=== PATIENT | male | born 1950 | race Caucasian/White ===

== ENCOUNTER → 2023-08-03 07:38 | Outpatient (REF) | payer MEDICARE, OTHER, SELFPAY | LOC: HWRAD 07:38 | PROVIDERS: ATTENDING PHYSICIAN Family Medicine | DX: R10.33 Periumbilical pain (principal); L29.9 Pruritus, unspecified; Z87.19 Personal history of other diseases of the digestive system | CPT/HCPCS: 76700 ==

== ENCOUNTER 2023-08-03 13:22 | Inpatient (IN) | payer MEDICARE, OTHER, SELFPAY ==
[2023-08-03] VITALS (10 sets, daily range): BP systolic 98–152; BP diastolic 63–124
--- NOTE | 2023-08-03 11:38 | ED.GENMED ---
History of Present Illness
General
Chief Complaint: Abnormal Lab Value
Source: patient, physician and previous radiology exam
Exam Limitations: none
Time Seen by Provider: 08/03/23 11:09
Nursing documentation reviewed up to this point in time: agreed with
Travel History
Have you had any contact with someone who has COVID-19?: No
Do you have any symptoms of coronavirus? Fever > 100 degrees, chills, cough, shortness of breath, sore throat, loss of taste or smell, muscle aches, or headache?: No
History of Present Illness
History of Present Illness:
73-year-old male referred to the ER for evaluation and admission due to elevated bilirubin social drinker about a beer a week, non-smoker month or so ago developed some indigestion after eating sausage did not think too much of it subsequently had
another episode when he was in [facility] with fever and chills, has noticed some yellowing of the skin and itching, had outpatient blood work at [facility] yesterday showed increased bilirubin ultrasound done today at the [facility], referred to
the ER for evaluation MRI MRCP admission consideration for specialty consultation
Past History
Past History
ED Past Medical History: Cancer (Melanoma with resection at [place]); Negative Asthma, HTN, Hypercholesterolemia or NIDDM
ED Past Surgical History: Other (Melanoma with resection at [place]); Negative Appendectomy, Bowel resection, Cardiac or Cholecystectomy
Social History
Tobacco: Non-smoker
Alcohol: Occasional
Drug: None
Personal:
Living: with family
Employment: Retired
Family History
Family History: Other ( with pancreatic CA)
Review of Systems
Review of Systems
All Other Systems: Not applicable
Constitutional: Reports fever, fatigue and chills
EENT: Reports no symptoms
Respiratory: Reports no symptoms
Cardiac: Reports no symptoms
ABD/GI: Reports nausea; Denies abdominal pain, vomiting or diarrhea
: Reports no symptoms
Musculoskeletal: Reports no symptoms
Skin: Reports itching
Neurological: Reports no symptoms
Phy Exam
Physical Exam
Physical Exam:
Physical Exam
General: no apparent distress, not acutely ill
Neck: Slight jaundice
Heart: s1/s2 regular rate and rhythm, no murmur. equal radial pulses.
Lungs: no acute respiratory distress. clear bilaterally
Abdomen: Not tender
Neuro: alert and oriented. no focal neurological deficits
Skin: no rash
Psychiatric: well kept. interactive and cooperative
Extremities: no edema.
Course
Orders/Labs/Results
Orders:
Orders
08/03/23 11:46
Amylase Urgent
Complete Blood Count/With Diff Urgent
Comprehensive Metabolic Panel Urgent
Lipase Urgent
PTT Urgent
Prothrombin Time Urgent
08/03/23 12:00
Blood Culture Q30M
KATELYNN Source: Blood/Venous
Specimen Description:
08/03/23 12:30
Blood Culture Q30M
KATELYNN Source: Blood/Venous
Specimen Description:
Vital Signs
Initial and Last Documented VS:
Initial Vital Signs
Temp Pulse Resp BP Pulse Ox
97.6 F 63 18 98/68 96
08/03/23 09:56 08/03/23 09:56 08/03/23 09:56 08/03/23 09:56 08/03/23 09:56
Last Documented Vital Signs
Temp Pulse Resp BP Pulse Ox
97.6 F 61 17 134/63 99
08/03/23 11:53 08/03/23 11:53 08/03/23 11:53 08/03/23 11:53 08/03/23 11:53
MDM/Problems Addressed
Differential Diagnosis Includes:
Jaundice obstruction malignancy stone infection hepatitis
MDM/Problems Addressed:
Jaundice obstructive numbers
Chronic conditions affecting care:
Melanoma
Acute Exacerbation and/or Progression of Chronic Illness:
Melanoma
*Critical Care Note
Total Time (30-74mins, 75-104mins- exclusive of procedures): Not Applicable
Update Note
Update Note:
Labs from the outpatient setting reviewed from what was sent to me from the PCP, will repeat here blood cultures due to having chills, outpatient ultrasound for the wellness center noted message sent to the hospitalist for admission
ED Attending Note
-
Portions of this chart may have been created with voice recognition software.� Occasional wrong word or��sound alike� substitutions may have occurred due to the inherent limitations of voice recognition software.
Discharge Plan
Departure
Patient Disposition: Admit
Date of Disposition: 08/03/23
Time of Disposition: 11:59
Admit to: Med/Surg
Presentation/result/management discussed w/ accepting MD/DO: Hospitalist
Patient with high blood pressure during this ER visit?: No
Condition: Fair
Covid-19: Not Applicable
Discharge Problem:
Jaundice
Prescriptions:
No Action
sulfacetamide sodium 1 DROP drops
2 drp ophthalmic (eye) Q2H Qty: 1 0RF
Rx Instructions:
While awake
Referrals:
Dante Villalobos MD [Family Provider] -
Interventions
Interventions:
*Risk Screen - Suicide Last Done: 08/03/23 11:56
*General Assessment Last Done: 08/03/23 11:54
ED- Fall Risk Assessment Last Done: 08/03/23 11:57
*ED COVID-19 Vaccine History Last Done: 08/03/23 09:56
[2023-08-03 11:57] LABS: % Basophils 0.4 % (0-2); % Eosinophils 1.3 % (0-6); % Immature Granulocytes 0.2 % (0-0.5); % Lymphocytes 20.7 % (20.5-51.1); % Monocytes 8.6 % (1.7-9.3); % Neutrophils 68.8 % (42.2-75.2); Absolute Eosinophils 0.1 10^3/uL (0-0.7); Absolute Monocytes 0.4 10^3/uL (0.1-0.6); Absolute Neutrophils 3.3 10^3/uL (1.4-6.5); Hematocrit 39.7 % (39.0-52.0); Hemoglobin 13.5 g/dL (13.0-18.0); Mean Corpuscular Volume 91.1 fL (80.0-94.0); Mean Platelet Volume 9.6 fL (7.4-10.4); Nucleated Red Blood Cells % 0 % (-); Platelet Count 154 10^3/uL (130-400); Red Blood Cell Count 4.36 10^6/uL (4.70-6.10); Red Cell Dist. Width 13.2 % (11.5-14.5); White Blood Cell Count 4.8 10^3/uL (4.8-10.8)
[2023-08-03 12:12] LABS: INR 0.96; PT 12.6 Sec (11.4-14.6)
[2023-08-03 12:13] LABS: ALT (SGPT) 175 U/L (0-50); APTT 31.4 Sec (23.4-35.0); AST (SGOT) 61 U/L (17-59); Albumin 4.1 g/dl (3.5-5.0); Alkaline Phosphatase 193 U/L (38-126); Blood Urea Nitrogen 16 mg/dl (9-20); Calcium 9.5 mg/dl (8.4-10.2); Carbon Dioxide 26 mmol/L (22-30); Chloride 99 mmol/L (98-107); Glucose 207 mg/dl (70-99); Potassium 3.9 mmol/L (3.5-5.1); Sodium 135 mmol/L (135-145); Total Bilirubin 3.6 mg/dl (0.2-1.3); Total Protein 7.1 g/dl (6.3-8.2); eGFR > 60.00
[2023-08-03 12:20] LABS: Amylase 56 U/L (30-110); Lipase 87 U/L (23-300)
--- NOTE | 2023-08-03 13:08 | HPS.HSE ---
Addendum entered and electronically signed by Dick Leblanc MD 08/03/23 13:43:
I saw and examined the patient.
The JAMB CUTTER or PA's note was reviewed and I agree with the note.
Comment:
Patient 73 years old with history of diabetes mellitus, metastatic melanoma, BPH, presented to the hospital abdominal pain. Patient has been having intermittent diffuse mild to moderate abdominal discomfort for last several weeks on and off
associated nausea, and also some shaking and started having some pruritus and some yellow skin. His PCP ordered ultrasound and some blood work that came back abnormal with elevated LFTs. His ultrasound shows cholelithiasis but no cholecystitis and
mild hepatic steatosis and mild splenomegaly. He was sent over to the hospital for evaluation. Denies any chest pain or shortness of breath.
Physical exam:
General: Acutely ill. Nontoxic
HEENT: Icterus present. Normocephalic, Atraumatic and Dry Mucous Membranes
Respiratory: Clear to Auscultation; Negative Wheezes, Rales or Rhonchi
Cardiac: Regular Rhythm and S1/S2
GI: Soft, Nontender and Nondistended
Musculoskeletal: No Clubbing, No Cyanosis and No Edema
Neuro: Awake, Alert and Oriented
Psych: Calm
A/P:
Abdominal pain with elevated LFTs--> LFTs with obstructive pattern, plan for MRCP, empiric broad-spectrum antibiotics, n.p.o. IV fluids, follow-up cultures, GI consult. Will give further recommendations based clinical course.
Original Note:
Family Physician
-
Family Physician: Dante Villalobos
Chief Complaint
-
Jaundice
History of Present Illness
Patient is a 73 y/o male with PMH of type II diabetes presented to the ED after being sent by his PCP for elevated bilirubin. Patient says he had an episode of epigastric burning and discomfort after eating at a convention on June 27, 2023, which
resolved the next day. He then had an episode of 'severe shakes' after eating at a food truck while in [facility]. He didn't eat for 3 days but started to feel better and was able to drive home. He says he started to feel unwell again on Sunday
with chills and severe pruritus. He saw his PCP on Sunday who ordered an abdominal US and blood work. He received a call from his PCP this morning telling him to present to the ED due to an elevated bilirubin. Patient currently denies abdominal
pain, nausea, vomiting, fever, chills, sweats, and chest pain or discomfort.
Medical History
Past Medical History
Past Medical History: Reports Other
Additional Past Medical History:
Diabetes Mellitus, Type II
BPH
Metastatic Melanoma (Lymph Node Only)
Past Surgical History: Reports Other
Additional Past Surgical History:
Melanoma Removal with Lymph Node Dissection
Social History
Tobacco: Non-smoker
Alcohol: Occasional (One beer per week)
Family History
Family History: Not pertinent
Allergies / Home Medications
Allergies reflects when Allergies were last updated in [employer].
Home Medications with original date entered in [employer]
Allergy/Medication List:
Allergies
Allergy/AdvReac Type Severity Reaction Status Date / Time
No Known Allergies Allergy Verified 08/03/23 10:01
Home Medications
meclizine 12.5 mg tablet 12.5 mg PO TIDPRN PRN vertigo 08/03/23
metformin 500 mg tablet,extended release 24 hr 500 mg PO DAILY Diabetes 08/03/23
multivit,calcium,min-folic acid 240 mcg-D3 25 mcg-lycop 300 mcg tablet (One A Day Men Complete) 1 tab PO DAILY Supplement 08/03/23
naproxen sodium 220 mg tablet (Aleve) 440 mg PO DAILYPRN PRN mild pain 08/03/23
polyethylene glycol 3350 17 gram oral powder packet (Miralax) 17 g PO DAILY PRN constipation 08/03/23
Review of Systems
-
A 12 point ROS was completed and negative except as noted: Yes
Constitutional: Denies Fever or Chills
Respiratory: Denies Cough or Trouble Breathing
Cardiac: Denies Chest Pain or Palpitations
Abdomen/GI: Reports See HPI
Physical Exam
Vital Signs
Vital Signs
Temp Pulse Resp BP Pulse Ox
97.6 F 62 14 122/93 97
08/03/23 11:53 08/03/23 12:45 08/03/23 12:45 08/03/23 12:00 08/03/23 12:45
Physical Exam
General: No Apparent Distress and Comfortable
HEENT: Moist mucous membranes, Atraumatic and Other (Scleral Icterus)
Respiratory: Clear and Non Labored Respirations
Cardiac: S1/S2 and Regular Rhythm
GI: Soft, Non Tender and Normal Bowel Sounds
Rectal: Deferred by Provider
Musculoskeletal: No Clubbing, No Cyanosis and No Edema
Skin: Warm, Dry and Jaundice (Slightly)
Neuro: Awake, Alert, Oriented and Nonfocal/grossly intact
Psych: Calm
Laboratory Results
-
08/03/23 11:46
08/03/23 11:46
Laboratory Results
PT 12.6 Sec (11.4-14.6) 08/03/23 11:46
INR 0.96 08/03/23 11:46
APTT 31.4 Sec (23.4-35.0) 08/03/23 11:46
Total Bilirubin 3.6 mg/dl (0.2-1.3) H 08/03/23 11:46
AST 61 U/L (17-59) H 08/03/23 11:46
ALT 175 U/L (0-50) H 08/03/23 11:46
Alkaline Phosphatase 193 U/L (38-126) H 08/03/23 11:46
Lipase 87 U/L (23-300) 08/03/23 11:46
Abd US:
1. Cholelithiasis. No secondary findings to suggest acute cholecystitis.
2. Top normal caliber of the common bile duct.
3. Mild hepatic steatosis.
4. Mild splenomegaly.
Data Reviewed
-
Ultrasound: Report Reviewed by me
Lab Data: Labs Reviewed by me
Impression/Plan
-
Jaundice
-Consult GI
-Check MRI/MRCP
-Trend LFTs
Diabetes Mellitus, Type II
-Hold metformin
-Monitor sugars and continue coverage insulin
DVT proph: Lovenox
Code Status: Full Code
--- NOTE | 2023-08-03 14:20 | CON.GI ---
Addendum entered and electronically signed by Jt Napoles MD 08/03/23 14:55:
I saw and examined the patient.
The FERMENTER WINE or PA's note was reviewed and I agree with the note.
Comment: 73yo male presents with episodes of epigastric pain, initially after eating at convention and out at restaurant which he attributed to food poisoning. Last episode occurred with diaphoresis earlier this week lasting couple days. Saw PCP
and had labs and US- gallstones and top normal CBD and sent to ER. TBil 3.6, AST 61, ALT 175. Lipase normal. Currently pain free
REC:
Await MRI/MRCP to r/o CBD stone. If positive---> ERCP (inpt vs outpt could be considered as he is pain free for last couple days after most recent attack)
Should have eventual cholecystectomy regardless of MRI result
Trend LFTs
Original Note:
Consultation
-
Date/Time Consultation Requested: 08/03/23 1315
Date/Time Consultation Performed: 08/03/23 1345
Requesting Provider: KIM Francis
Performing Provider: Dr. Napoles/LJ Guerrero
Reason for Consultation: jaundice
Medical History
Chief Complaint / HPI
Chief Complaint: jaundice
History of Present Illness:
73-year-old male with history of melanoma, BPH, diabetes vertigo and colon polyps presents to the emergency room with elevated LFTs. Asked to evaluate for the same. The patient states that he was in [facility] in the first week in July and he
developed acute onset of chills and rigors. He still had some nausea and he tried to make himself vomit without any success. He had no other symptoms. This happened again a couple days later and they took his temperature and it was 95 degrees.
He states he just could not get warm. His noticed that he looked yellow. He went to his primary care's office where he obtained labs that showed that he was jaundiced and was asked to come to the emergency room. The patient also noticed that
just the other day he had some itching of his skin. The patient has had no recent medications. No travel other than to [facility]. He denies any known fevers, vomiting, melena, hematochezia, dysphagia or odynophagia. No acholic stools, no
bilirubinuria, the patient denies any early satiety or unintentional weight loss. The patient drinks rare alcohol maybe once every week or 2. Patient denies any tattoos, piercings, IV drug use, new medications, sick contacts, raw or spoiled foods,
sore throat, lymphadenopathy, joint pains, rashes or any other notable symptoms.
Past Medical History
Past Medical History: Cancer (Melanoma), NIDDM and Other (BPH, vertigo, colon polyp)
Past Surgical History: Other (Melanoma excision with lymph node dissection)
Social History
Tobacco: Non-Smoker
Alcohol: Other (1 beer every week or 2)
Drug: None
Personal:
Living: With Family
Family History
Family History: Other (No family history of gastrointestinal malignancy, father with 'colitis'.)
Allergies / Home Medications
Allergy/AdvReac Type Severity Reaction Status Date / Time
No Known Allergies Allergy Verified 08/03/23 10:01
Medication Instructions Recorded
meclizine 12.5 mg tablet 12.5 mg PO TIDPRN PRN vertigo 08/03/23
metformin 500 mg tablet,extended 500 mg PO DAILY Diabetes 08/03/23
release 24 hr
multivit,calcium,min-folic acid 1 tab PO DAILY Supplement 08/03/23
240 mcg-D3 25 mcg-lycop 300 mcg
tablet (One A Day Men Complete)
naproxen sodium 220 mg tablet 440 mg PO DAILYPRN PRN mild pain 08/03/23
(Aleve)
polyethylene glycol 3350 17 gram 17 g PO DAILY PRN constipation 08/03/23
oral powder packet (Miralax)
Review of Systems
-
All other systems: A 12 pt ROS was Negative except as stated above in HPI
Vital Signs
Temp Pulse Resp BP Pulse Ox
97.6 F 61 19 143/124 96
08/03/23 11:53 08/03/23 12:54 08/03/23 12:54 08/03/23 13:00 08/03/23 12:54
Physical Exam
Exam
General: No Apparent Distress
HEENT: Other (Sclera mild icterus)
Respiratory: Clear
Cardiac: Regular Rhythm
GI: Soft, Non Tender, Non Distended and Normal Bowel Sounds
Musculoskeletal: No Edema
Skin: Warm and Dry
Neuro: AO x 3
Psych: Calm
Results
WBC 4.8 10^3/uL (4.8-10.8) 08/03/23 11:46
Hgb 13.5 g/dL (13.0-18.0) 08/03/23 11:46
Hct 39.7 % (39.0-52.0) 08/03/23 11:46
MCV 91.1 fL (80.0-94.0) 08/03/23 11:46
Plt Count 154 10^3/uL (130-400) 08/03/23 11:46
Absolute Neuts (auto) 3.3 10^3/uL (1.4-6.5) 08/03/23 11:46
PT 12.6 Sec (11.4-14.6) 08/03/23 11:46
INR 0.96 08/03/23 11:46
APTT 31.4 Sec (23.4-35.0) 08/03/23 11:46
Sodium 135 mmol/L (135-145) 08/03/23 11:46
Potassium 3.9 mmol/L (3.5-5.1) 08/03/23 11:46
Chloride 99 mmol/L (98-107) 08/03/23 11:46
Carbon Dioxide 26 mmol/L (22-30) 08/03/23 11:46
BUN 16 mg/dl (9-20) 08/03/23 11:46
Creatinine 0.8 mg/dL (0.7-1.3) 08/03/23 11:46
Calcium 9.5 mg/dl (8.4-10.2) 08/03/23 11:46
Total Bilirubin 3.6 mg/dl (0.2-1.3) H 08/03/23 11:46
AST 61 U/L (17-59) H 08/03/23 11:46
ALT 175 U/L (0-50) H 08/03/23 11:46
Alkaline Phosphatase 193 U/L (38-126) H 08/03/23 11:46
Amylase 56 U/L (30-110) 08/03/23 11:46
Lipase 87 U/L (23-300) 08/03/23 11:46
Diagnostic Image Results:
US ABD:
IMPRESSION:
1. Cholelithiasis. No secondary findings to suggest acute cholecystitis.
2. Top normal caliber of the common bile duct.
3. Mild hepatic steatosis.
4. Mild splenomegaly.
Electronically signed by Jose G Ken 08/03/2023 8:52 AM
Prior GI Procedures:
EGD: Never had
Colonoscopy: digestive in [place] approximately 6 months ago. Patient states that this was okay. Prior history of polyps in the past. Obtains colonoscopies every 5 years.
Assessment / Plan
-
73-year-old male with history of melanoma, BPH, diabetes vertigo and colon polyps presents to the emergency room with elevated LFTs. New onset jaundice with recent episodes of rigors. Gallbladder with cholelithiasis. WBC 4.8, hemoglobin 13.5,
hematocrit 39.7, platelets 154, PT 12.6, INR 0.96, sodium 135, potassium 3.9, BUN 16, creatinine 0.8, glucose 207, total bilirubin 3.6, AST 61, ALT 175, alk phos 193, amylase 56, lipase 87.
Impression:
Elevated LFTs
Recent rigors
Plan:
-Fractionate bilirubin
-Check acute hepatitis panel
-Obtain MRI/MRCP
-Trend LFTs
-Await blood culture
-Further recommendations pending above studies.
-
-
Thank you for consultation and allowing me to participate in the patient's care. Please call the supervisor reclamation GI physician during the after hours with any questions or concerns.
[2023-08-03 15:05] LABS: Direct Bilirubin 2.4 mg/dl (0.0-0.4)
--- NOTE | 2023-08-03 16:40 | CON.GS ---
Addendum entered and electronically signed by Sheldon Colin MD 08/03/23 18:07:
Patient seen and examined independently of nurse practitioner. Agree with documented consultation.
HPI: 73-year-old male presenting to the emergency department at the advisement of his primary care physician secondary to jaundice, acholic stools and intermittent chills/rigors.
Patient reports 3 episodes similar to this over the last 6 to 8 weeks. No associated abdominal pain. He feels the acute onset of rigors, chills, anorexia. In the past the symptoms would last overnight or into the next day and subside. This time
they persisted and he began noticing dark tea colored urine, acholic stools. Primary care ordered an ultrasound and LFTs. After noting elevation of LFTs he was referred to the emergency department.
Patient generally feels well at this time. Denies any history of abdominal pain. Offers no additional complaints.
Past medical history notable diabetes mellitus, BPH, history of melanoma. No past abdominal surgical history.
Afebrile vital signs stable
Abdomen: Soft, nondistended, completely nontender. No rebound rigidity or guarding
Assessment/plan: 73-year-old male presenting with obstructive jaundice, gallstones noted on ultrasound of gallbladder.
Agree with GI evaluation with MRI MRCP. Subsequent recommendations for care pending MRI results.
Original Note:
Medical History
-
Chief Complaint: shaking
History of Present Illness:
This is a 73 yo male with a h/o DM who presents with his third episode of generally feeling unwell with chills and rigors and poor appetite. He denies nausea or vomiting with these episodes or abdominal pain only that he feels ill. He denies fevers
during these episodes and has been afebrile here. With this current episode, he began having symptoms late last week while travelling and attributed them to food poisoning. He did not eat for about 3 days due to loss of appetite and was able to
drive home. When he did begin eating again, the symptoms returned with pruritus causing him to present to his PCP 2 days ago for evaluation. Labs were drawn at that time and today, he was telephoned by his doctor with instructions to present to the
ED as his LFT's were elevated. He notes that yesterday, he passed a BM that was whitish/pale in color and that his urine has become quite dark. He denies diarrhea or constipation. On exam, abdomen is soft, non-tender and non-distended. Jaundice is
noted.
Past Medical History
Past Medical History: Cancer (melanoma), NIDDM and Other (BPH)
Past Surgical History: Other (melanoma/skin removed and lymph node)
Social History
Tobacco: Non-Smoker
Alcohol: Occasional
Family History
Family History: Reviewed & Not Pertinent
Allergies / Home Medications
Allergy/AdvReac Type Severity Reaction Status Date / Time
No Known Allergies Allergy Verified 08/03/23 10:01
Medication Instructions Recorded Confirmed Type
meclizine 12.5 mg tablet 12.5 mg PO TIDPRN PRN vertigo 08/03/23 08/03/23 History
metformin 500 mg tablet,extended 500 mg PO DAILY Diabetes 08/03/23 08/03/23 History
release 24 hr
multivit,calcium,min-folic acid 1 tab PO DAILY Supplement 08/03/23 08/03/23 History
240 mcg-D3 25 mcg-lycop 300 mcg
tablet (One A Day Men Complete)
naproxen sodium 220 mg tablet 440 mg PO DAILYPRN PRN mild pain 08/03/23 08/03/23 History
(Aleve)
polyethylene glycol 3350 17 gram 17 g PO DAILY PRN constipation 08/03/23 08/03/23 History
oral powder packet (Miralax)
Review of Systems
-
History Source: Patient
All other systems: Negative unless noted
A 10 point review of systems was completed, and was negative except as per HPI.
Physical Exam
Vital Signs
Temp Pulse Resp BP Pulse Ox
97.8 F 61 18 152/71 96
08/03/23 16:04 08/03/23 16:04 08/03/23 16:04 08/03/23 16:04 08/03/23 16:04
08/02/23 08/03/23 08/04/23
06:59 06:59 06:59
Actual Weight 90.9 kg
Lab Results
08/03/23 11:46
08/03/23 11:46
WBC 4.8 10^3/uL (4.8-10.8) 08/03/23 11:46
Hgb 13.5 g/dL (13.0-18.0) 08/03/23 11:46
Hct 39.7 % (39.0-52.0) 08/03/23 11:46
Plt Count 154 10^3/uL (130-400) 08/03/23 11:46
Abs Immat Gran (auto) 0.0 10^3/uL (0-0.05) 08/03/23 11:46
Neutrophils % 68.8 % (42.2-75.2) 08/03/23 11:46
Physical Exam
General: Well Developed, No Apparent Distress and Comfortable
HEENT: Scleral Icterus
Respiratory: Non Labored Respirations
GI: Soft, Non Tender and Non Distended
Skin: Jaundice
Psych: Calm
Data Reviewed
-
Ultrasound: Image Personally Visualized and interpreted, Report Reviewed by me, Discussed with Physician, Discussed with Nurse and Discussed with Patient
Labs: Labs Reviewed by me, Discussed with Physician, Discussed with Nurse and Discussed with Patient
Assessment / Plan
-
73 yo diabetic male presenting with monthly episodes of rigors and poor appetite with general feeling of being unwell who developed pruritus, jaundice and acholic stool this week sent in by PCP as LFT's elevated. AFVSS. Abdominal US with
cholelithiasis without cholecystitis. No leukocytosis. Afebrile. Suspect choledocholithiasis vs recently passed stone.
GI following with us with MRCP planned and possible MRCP pending findings
Trend LFT's/CBC's
Will need lap cholecystectomy this admission, timing TBD pending further work up
[2023-08-03] MEDS: NSS 1000 IV (16:49)
[2023-08-03] MEDS: ZOSYN 50 IV ×2 (16:49→21:02)
[2023-08-03] MEDS: LOVENOX 40 MG SC (16:50)
[2023-08-03 17:03] LABS: Glucose - Point of Care 93 mg/dl (70-99)
[2023-08-03 18:02] LABS: Hepatitis B Surface Antigen Negative (Negative)
[2023-08-03 18:20] LABS: Hepatitis B Surface Antibody Negative; Hepatitis C Antibody Negative (Negative)
[2023-08-03 19:07] LABS: Hepatitis A IgM Antibody Negative (Negative); Hepatitis B Core Ab, IgM Negative (Negative)
[2023-08-03 23:53] LABS: Glucose - Point of Care 101 mg/dl (70-99)
[2023-08-04] MEDS: NSS 1000 IV ×2 (03:07→16:01)
[2023-08-04] MEDS: ZOSYN 50 IV ×4 (03:46→21:12)
[2023-08-04 06:00] VITALS: BMI 29.4
[2023-08-04 06:12] LABS: Glucose - Point of Care 118 mg/dl (70-99)
[2023-08-04 07:25] VITALS: BP 146/75
[2023-08-04 08:50] LABS: Hematocrit 39.6 % (39.0-52.0); Mean Corp Hgb Conc. 32.8 g/dL (33.0-37.0); Mean Corpuscular Hgb 30.7 pg (27.0-31.0); Mean Corpuscular Volume 93.4 fL (80.0-94.0); Mean Platelet Volume 10.1 fL (7.4-10.4); Platelet Count 160 10^3/uL (130-400); Red Blood Cell Count 4.24 10^6/uL (4.70-6.10); Red Cell Dist. Width 13.2 % (11.5-14.5); White Blood Cell Count 4.4 10^3/uL (4.8-10.8)
--- NOTE | 2023-08-04 08:55 | W.PN.HOSP.TC ---
Today's Communication/Plan
-
IV fluids, IV antibiotics, MRCP.
Assessment / Plan
Assessment / Plan
Physical exam:
General: Acutely ill.� Nontoxic
HEENT: Icterus present. Normocephalic, Atraumatic and Dry Mucous Membranes
Respiratory: Clear to Auscultation; Negative Wheezes, Rales or Rhonchi
Cardiac: Regular Rhythm and S1/S2
GI: Soft, Nontender and Nondistended
Musculoskeletal: No Clubbing, No Cyanosis and No Edema
Neuro: Awake, Alert and Oriented
Psych: Calm
A/P:
Abdominal pain associated with rigors and elevated LFTs, rule out choledocholithiasis/cholangitis:
-Plan for MRCP today
-Continue to trend LFTs
-Continue IV antibiotics, Zosyn
-Continue IV fluids but decrease rate
-Appreciate GI consult
-Appreciate surgery consult
Cholelithiasis:
-As above
-Plan for cholecystectomy, timing per surgery.
Diabetes Mellitus, Type II
-Cont to hold metformin
-Monitor sugars and continue coverage insulin
DVT proph: Lovenox
Code Status: Full Code
Anticipated Discharge: > 48 hours
Subjective/Interval History
-
Date of Service: August 04, 2023
Patient denies any abdominal pain nausea or vomiting today. Afebrile
Objective Data
-
Labs:
Laboratory Results
08/04/23
07:41
WBC 4.4 L
Hgb 13.0
Hct 39.6
Plt Count 160
Sodium Pending
Potassium Pending
Chloride Pending
Carbon Dioxide Pending
BUN Pending
Creatinine Pending
Glucose Pending
Calcium Pending
Total Bilirubin Pending
AST Pending
ALT Pending
Alkaline Phosphatase Pending
Vital Signs:
Vital Signs
Temp Pulse Resp BP Pulse Ox
97.4 F 58 18 146/75 95
08/04/23 07:25 08/04/23 07:25 08/04/23 07:25 08/04/23 07:25 08/04/23 07:25
I&O
08/03/23 08/04/23 08/05/23
06:59 06:59 06:59
Intake Total 150 / 150
Balance 150 / 150
Review of Systems
-
All other systems: Reviewed and negative
[2023-08-04] MEDS: PROTONIX IV 40 MG IV (08:58)
[2023-08-04] MEDS: NSS (PRESERVATIVE FREE) 10 ML IV (08:58)
[2023-08-04 09:31] LABS: ALT (SGPT) 147 U/L (0-50); AST (SGOT) 58 U/L (17-59); Albumin 3.6 g/dl (3.5-5.0); Alkaline Phosphatase 188 U/L (38-126); Blood Urea Nitrogen 14 mg/dl (9-20); Calcium 8.8 mg/dl (8.4-10.2); Carbon Dioxide 25 mmol/L (22-30); Chloride 105 mmol/L (98-107); Direct Bilirubin 1.7 mg/dl (0.0-0.4); Estimated Creatinine Clearance 65 ml/min; Glucose 121 mg/dl (70-99); Glycohemoglobin (HgbA1c) 6.5 % (4.0-5.6); Magnesium 2.2 mg/dl (1.6-2.3); Potassium 4.2 mmol/L (3.5-5.1); Sodium 135 mmol/L (135-145); Total Protein 6.5 g/dl (6.3-8.2); eGFR > 60.00
[2023-08-04 11:52] LABS: Glucose - Point of Care 117 mg/dl (70-99)
--- NOTE | 2023-08-04 14:20 | W.PN.GI.CBS2 ---
Today's Communication / Plan
-
LFTs improving
MRI shows CBD stone
Plan ERCP Sunday
Allow diet as pt asymptomatic and LFTs improving
Assessment / Plan
-
73-year-old male with history of melanoma, BPH, diabetes vertigo and colon polyps presents to the emergency room with elevated LFTs. New onset jaundice with recent episodes of rigors. Gallbladder with cholelithiasis. WBC 4.8, hemoglobin 13.5,
hematocrit 39.7, platelets 154, PT 12.6, INR 0.96, sodium 135, potassium 3.9, BUN 16, creatinine 0.8, glucose 207, total bilirubin 3.6, AST 61, ALT 175, alk phos 193, amylase 56, lipase 87.
MRI- 7mm distal CBD stone. Cholelithiasis without evidence for acute cholecystitis
Impression:
CBD stone
Recent rigors
Subjective
Subjective
Date of Service: August 04, 2023
Denies complaints. Feels well
Objective
Data Reviewed
Laboratory Data:
Laboratory Results
08/04/23 07:41
08/04/23 07:41
Laboratory Results
PT 12.6 Sec (11.4-14.6) 08/03/23 11:46
INR 0.96 08/03/23 11:46
APTT 31.4 Sec (23.4-35.0) 08/03/23 11:46
Magnesium 2.2 mg/dl (1.6-2.3) 08/04/23 07:41
Total Bilirubin 3.0 mg/dl (0.2-1.3) H 08/04/23 07:41
AST 58 U/L (17-59) 08/04/23 07:41
ALT 147 U/L (0-50) H 08/04/23 07:41
Alkaline Phosphatase 188 U/L (38-126) H 08/04/23 07:41
Amylase 56 U/L (30-110) 08/03/23 11:46
Lipase 87 U/L (23-300) 08/03/23 11:46
Vital Signs and I&O:
Vital Signs
Temp Pulse Resp BP Pulse Ox
97.4 F 58 18 146/75 95
08/04/23 07:25 08/04/23 07:25 08/04/23 07:25 08/04/23 07:25 08/04/23 07:25
I&O
08/03/23 08/04/23 08/05/23
06:59 06:59 06:59
Intake Total 150 / 150
Balance 150 / 150
Physical Exam
Physical Exam
GI: Soft, Non Distended and Non Tender
--- NOTE | 2023-08-04 15:20 | CM ---
Alert awake oriented patient who lives with his Evelin who lives in a 2 story home with 1 step to enter and bed and bathroom on first floor. He is assisted in all activities of daily living.He was offered VN he unsure his needs.
No VN/SNF history
Pharmacy [facility] [id number] Villalobos
PLAN Home unsure of dc needs
[2023-08-04 15:31] VITALS: BP 155/81
[2023-08-04 16:59] LABS: Glucose - Point of Care 150 mg/dl (70-99)
[2023-08-04] MEDS: LOVENOX 40 MG SC (17:32)
[2023-08-04] MEDS: ZOFRAN 4 MG IV (17:32)
--- NOTE | 2023-08-04 18:16 | W.PN.UPDATE ---
Update Note
Progress Note Update
called as X cover--pt c/o stomach cramps and nausea--just received zofran--will add morphine--change diet to NPO
[2023-08-04 23:50] VITALS: BP 125/64
[2023-08-05 00:13] LABS: Glucose - Point of Care 148 mg/dl (70-99)
[2023-08-05] MEDS: NOVOLOG FLEXPEN-LOW RESISTANCE SC ×2 (00:21→06:10)
[2023-08-05] MEDS: ZOSYN 50 IV ×4 (03:42→21:13)
[2023-08-05] MEDS: NSS 1000 IV ×2 (05:23→18:30)
[2023-08-05 06:00] VITALS: BMI 29.7
[2023-08-05 06:08] LABS: Glucose - Point of Care 131 mg/dl (70-99)
[2023-08-05 07:37] VITALS: BP 141/71
[2023-08-05 08:10] LABS: % Basophils 0.4 % (0-2); % Eosinophils 1.2 % (0-6); % Immature Granulocytes 0.4 % (0-0.5); % Lymphocytes 17.2 % (20.5-51.1); % Monocytes 8.2 % (1.7-9.3); % Neutrophils 72.6 % (42.2-75.2); Absolute Eosinophils 0.1 10^3/uL (0-0.7); Absolute Lymphocytes 0.8 10^3/uL (1.2-3.4); Absolute Monocytes 0.4 10^3/uL (0.1-0.6); Absolute Neutrophils 3.6 10^3/uL (1.4-6.5); Hematocrit 38.2 % (39.0-52.0); Mean Corpuscular Volume 91.2 fL (80.0-94.0); Mean Platelet Volume 10.1 fL (7.4-10.4); Nucleated Red Blood Cells % 0 % (-); Platelet Count 161 10^3/uL (130-400); Red Blood Cell Count 4.19 10^6/uL (4.70-6.10); White Blood Cell Count 4.9 10^3/uL (4.8-10.8)
[2023-08-05 09:02] LABS: ALT (SGPT) 168 U/L (0-50); AST (SGOT) 103 U/L (17-59); Albumin 3.8 g/dl (3.5-5.0); Alkaline Phosphatase 252 U/L (38-126); Blood Urea Nitrogen 11 mg/dl (9-20); Calcium 8.9 mg/dl (8.4-10.2); Carbon Dioxide 22 mmol/L (22-30); Chloride 106 mmol/L (98-107); Estimated Creatinine Clearance 72 ml/min; Glucose 127 mg/dl (70-99); Potassium 4.1 mmol/L (3.5-5.1); Sodium 134 mmol/L (135-145); Total Bilirubin 5.9 mg/dl (0.2-1.3); Total Protein 6.7 g/dl (6.3-8.2); eGFR > 60.00
--- NOTE | 2023-08-05 09:07 | W.PN.HOSP.TC ---
Today's Communication/Plan
-
Continue IV fluids, IV antibiotics. Plan for ERCP tomorrow.
Assessment / Plan
Assessment / Plan
Physical exam:
General: Acutely ill.� Nontoxic
HEENT: Icterus present. Normocephalic, Atraumatic and Dry Mucous Membranes
Respiratory: Clear to Auscultation; Negative Wheezes, Rales or Rhonchi
Cardiac: Regular Rhythm and S1/S2
GI: Soft, Nontender and Nondistended
Musculoskeletal: No Clubbing, No Cyanosis and No Edema
Neuro: Awake, Alert and Oriented
Psych: Calm
A/P:
Choledocholithiasis and cholelithiasis:
-MRCP showed 7 mm distal common bile stone
-Continue to trend LFTs (trending up currently)
-Continue IV antibiotics, Zosyn
-Continue IV fluids
-Appreciate GI consult
-Appreciate surgery consult
-Continue pain control
-Surgery okay with clear liquid diet today but n.p.o. after midnight
-Plan for ERCP tomorrow followed by cholecystectomy
Hyponatremia:
-cont to monitor
Diabetes Mellitus, Type II
-Cont to hold metformin
-Monitor sugars and continue coverage insulin
-Hemoglobin A1c 6.5
DVT proph: Lovenox
Code Status: Full Code
Anticipated Discharge: 24 - 48 hours
Subjective/Interval History
-
Date of Service: August 05, 2023
Patient had recurrent abdominal pain and nausea last evening after eating solid food subsequently made n.p.o. Today he feels better. Afebrile
Objective Data
-
Labs:
Laboratory Results
08/05/23
07:00
WBC 4.9
Hgb 13.0
Hct 38.2 L
Plt Count 161
Sodium 134 L
Potassium 4.1
Chloride 106
Carbon Dioxide 22
BUN 11
Creatinine 0.9
Glucose 127 H
Calcium 8.9
Total Bilirubin 5.9 H D
AST 103 H
ALT 168 H
Alkaline Phosphatase 252 H
Vital Signs:
Vital Signs
Temp Pulse Resp BP Pulse Ox
97.8 F 68 16 125/64 96
08/04/23 23:50 08/04/23 23:50 08/04/23 23:50 08/04/23 23:50 08/04/23 23:50
I&O
08/04/23 08/05/23 08/06/23
06:59 06:59 06:59
Intake Total 150 / 150 2119
Balance 150 / 150 2119
[2023-08-05] MEDS: NSS (PRESERVATIVE FREE) 10 ML IV (09:10)
[2023-08-05] MEDS: PROTONIX IV 40 MG IV (09:11)
[2023-08-05 12:07] LABS: Glucose - Point of Care 211 mg/dl (70-99)
--- NOTE | 2023-08-05 12:11 | W.PN.GS2 ---
Today's Communication / Plan
-
ERCP tomorrow then lap juan tomorrow or Sunday pending OR availability
Assessment / Plan
-
Assessment/plan: 73-year-old diabetic male presenting with obstructive jaundice, gallstones noted on ultrasound of gallbladder and choledocholithiasis on MRCP without evidence of acute cholecystitis.
Discomfort and nausea with regular diet last night. Rise in LFT's this am.
AFVSS
No leukocytosis
--GI following with us with plan for ERCP tomorrow
--Recommend lap juan this admission, will tentatively plan for OR tomorrow after ERCP if able to arrange timing with OR vs Sunday
--OK for clear liquids today, NPO after MN
--Will start empiric abx preoperatively given return of symptoms yesterday
Subjective Data
-
Date of Service: August 05, 2023
Patient seen and examined at bedside with Dr. Lewis. Denies n/v today. Significant cramping and nausea with shaking after trying an omelette with home fries yesterday evening. Currently comfortable.
Objective Data
-
Intake and Output
08/04/23 08/05/23 08/06/23
06:59 06:59 06:59
Intake Total 150 / 150 2119
Balance 150 / 150 2119
Intake:
Oral fluids 480 / 480
IV fluids (Total) 100 / 100 1440 / 1440
IV piggybacks 50 / 50 200 / 200
Other:
Number of approximated MODERATE 4 3
amounts of urine
Vital Signs
Temp Pulse Resp BP Pulse Ox
98.1 F 63 18 141/71 94
08/05/23 07:37 08/05/23 07:37 08/05/23 07:37 08/05/23 07:37 08/05/23 07:37
Lab Results
08/05/23 07:00
08/05/23 07:00
Calcium 8.9 mg/dl (8.4-10.2) 08/05/23 07:00
Magnesium 2.2 mg/dl (1.6-2.3) 08/04/23 07:41
Total Bilirubin 5.9 mg/dl (0.2-1.3) H D 08/05/23 07:00
Direct Bilirubin 1.7 mg/dl (0.0-0.4) H 08/04/23 07:41
AST 103 U/L (17-59) H 08/05/23 07:00
ALT 168 U/L (0-50) H 08/05/23 07:00
Alkaline Phosphatase 252 U/L (38-126) H 08/05/23 07:00
Total Protein 6.7 g/dl (6.3-8.2) 08/05/23 07:00
Albumin 3.8 g/dl (3.5-5.0) 08/05/23 07:00
Physical Exam
-
NAD
ABD soft/nt/nd
Jaundiced
[2023-08-05] MEDS: NOVOLOG FLEXPEN-LOW RESISTANCE 2 UNITS SC ×2 (12:22→18:29)
[2023-08-05 15:15] VITALS: BP 141/73
--- NOTE | 2023-08-05 16:24 | W.PN.GI.CBS2 ---
Today's Communication / Plan
-
Plan ERCP tomorrow
Hold lovenox tonight
Clears, NPO p MN
Cont abx
Assessment / Plan
-
73-year-old male with history of melanoma, BPH, diabetes vertigo and colon polyps presents to the emergency room with elevated LFTs. New onset jaundice with recent episodes of rigors. Gallbladder with cholelithiasis. WBC 4.8, hemoglobin 13.5,
hematocrit 39.7, platelets 154, PT 12.6, INR 0.96, sodium 135, potassium 3.9, BUN 16, creatinine 0.8, glucose 207, total bilirubin 3.6, AST 61, ALT 175, alk phos 193, amylase 56, lipase 87.
MRI- 7mm distal CBD stone. Cholelithiasis without evidence for acute cholecystitis
Impression:
CBD stone
Recent rigors
Subjective
Subjective
Date of Service: August 05, 2023
After eating last night he developed abd pain. Diet downgraded to clears. Currently pain free
Objective
Data Reviewed
Laboratory Data:
Laboratory Results
08/05/23 07:00
08/05/23 07:00
Laboratory Results
PT 12.6 Sec (11.4-14.6) 08/03/23 11:46
INR 0.96 08/03/23 11:46
APTT 31.4 Sec (23.4-35.0) 08/03/23 11:46
Magnesium 2.2 mg/dl (1.6-2.3) 08/04/23 07:41
Total Bilirubin 5.9 mg/dl (0.2-1.3) H D 08/05/23 07:00
AST 103 U/L (17-59) H 08/05/23 07:00
ALT 168 U/L (0-50) H 08/05/23 07:00
Alkaline Phosphatase 252 U/L (38-126) H 08/05/23 07:00
Amylase 56 U/L (30-110) 08/03/23 11:46
Lipase 87 U/L (23-300) 08/03/23 11:46
Vital Signs and I&O:
Vital Signs
Temp Pulse Resp BP Pulse Ox
98.1 F 58 18 141/73 96
08/05/23 15:15 08/05/23 15:15 08/05/23 15:15 08/05/23 15:15 08/05/23 15:15
I&O
08/04/23 08/05/23 08/06/23
06:59 06:59 06:59
Intake Total 150 / 150 2119
Balance 150 / 150 2119
Physical Exam
Physical Exam
GI: Soft, Non Distended and Non Tender
[2023-08-05 18:29] LABS: Glucose - Point of Care 222 mg/dl (70-99)
[2023-08-05 18:58] LABS: Glucose - Point of Care 214 mg/dl (70-99)
[2023-08-05 23:36] VITALS: BP 129/69
[2023-08-06] VITALS (10 sets, daily range): BP systolic 134–179; BP diastolic 65–84; BMI 29.8
[2023-08-06 00:52] LABS: Glucose - Point of Care 104 mg/dl (70-99)
[2023-08-06] MEDS: NOVOLOG FLEXPEN-LOW RESISTANCE SC ×4 (00:54→17:13)
[2023-08-06] MEDS: NSS 1000 IV ×2 (03:47→22:05)
[2023-08-06] MEDS: ZOSYN 50 IV ×4 (03:47→22:05)
[2023-08-06 06:12] LABS: Glucose - Point of Care 108 mg/dl (70-99)
[2023-08-06] MEDS: NSS (PRESERVATIVE FREE) 10 ML IV (08:13)
[2023-08-06] MEDS: PROTONIX IV 40 MG IV (08:13)
--- NOTE | 2023-08-06 08:44 | W.PN.HOSP.TC ---
Today's Communication/Plan
-
Awaiting ERCP
Has been n.p.o. after midnight
For hopeful cholecystectomy either today or tomorrow
Continue to monitor electrolytes and LFTs
Continue Zosyn
Assessment / Plan
Assessment / Plan
Physical exam:
General: Acutely ill.� Nontoxic
HEENT: Icterus present. Normocephalic, Atraumatic and Dry Mucous Membranes
Respiratory: Clear to Auscultation; Negative Wheezes, Rales or Rhonchi
Cardiac: Regular Rhythm and S1/S2
GI: Soft, Nontender and Nondistended
Musculoskeletal: No Clubbing, No Cyanosis and No Edema
Neuro: Awake, Alert and Oriented
Psych: Calm
A/P:
Choledocholithiasis and cholelithiasis:
-MRCP showed 7 mm distal common bile stone
-Continue to trend LFTs (trending up currently)
-Continue IV antibiotics, Zosyn
-Continue IV fluids
-Appreciate GI consult/for ERCP today
-Appreciate surgery consult/for lap cholecystectomy either today or tomorrow pending or schedule
-Continue pain control
-n.p.o. after midnight
Hyponatremia:
-cont to monitor
-Repeat pending trending up
Diabetes Mellitus, Type II
-Cont to hold metformin
-Monitor sugars and continue coverage insulin
-Hemoglobin A1c 6.5
DVT proph: Lovenox
Code Status: Full Code
Anticipated Discharge: 24 - 48 hours
Subjective/Interval History
-
Date of Service: August 06, 2023
Has some minor nausea after eating only yesterday no significant abdominal pain referred
Objective Data
-
Labs:
Laboratory Results
08/06/23
08:12
WBC Pending
Hgb Pending
Hct Pending
Plt Count Pending
Sodium Pending
Potassium Pending
Chloride Pending
Carbon Dioxide Pending
BUN Pending
Creatinine Pending
Glucose Pending
Calcium Pending
Total Bilirubin Pending
AST Pending
ALT Pending
Alkaline Phosphatase Pending
Vital Signs:
Vital Signs
Temp Pulse Resp BP Pulse Ox
98.1 F 57 18 129/69 95
08/05/23 23:36 08/05/23 23:36 08/05/23 23:36 08/05/23 23:36 08/05/23 23:36
I&O
08/05/23 08/06/23 08/07/23
06:59 06:59 06:59
Intake Total 2119 1400 / 1400 1300 / 1300
Balance 2119 1400 / 1400 1300 / 1300
Review of Systems
-
History Source: Patient
Constitutional: Reports No Symptoms
Respiratory: Reports No Symptoms
Cardiac: Reports No Symptoms
Abdomen/GI: Reports Abdominal Pain
Physical Exam
-
General: Well Nourished
HEENT: Normocephalic
Respiratory: Clear to Auscultation
GI: Soft, Nontender and Tender (Mild right upper quadrant and epigastric)
Psych: Calm
Data Reviewed
-
Total Time Spent with Patient (in minutes): 45
MRI: Report Reviewed by me (Reviewed results of MRCP)
Labs: Labs Reviewed by me (Repeat LFTs pending for today)
[2023-08-06 08:53] LABS: % Basophils 0.5 % (0-2); % Eosinophils 2.2 % (0-6); % Immature Granulocytes 0.5 % (0-0.5); % Lymphocytes 24.4 % (20.5-51.1); % Monocytes 9.8 % (1.7-9.3); % Neutrophils 62.6 % (42.2-75.2); Absolute Eosinophils 0.1 10^3/uL (0-0.7); Absolute Lymphocytes 0.9 10^3/uL (1.2-3.4); Absolute Monocytes 0.4 10^3/uL (0.1-0.6); Absolute Neutrophils 2.3 10^3/uL (1.4-6.5); Hematocrit 36.8 % (39.0-52.0); Hemoglobin 12.6 g/dL (13.0-18.0); Mean Corp Hgb Conc. 34.2 g/dL (33.0-37.0); Mean Corpuscular Hgb 31.5 pg (27.0-31.0); Nucleated Red Blood Cells % 0 % (-); Platelet Count 166 10^3/uL (130-400); Red Cell Dist. Width 13.1 % (11.5-14.5); White Blood Cell Count 3.7 10^3/uL (4.8-10.8)
--- NOTE | 2023-08-06 08:59 | W.PN.GS2 ---
Today's Communication / Plan
-
Lap juan today vs tomorrow
Assessment / Plan
-
Assessment/plan: 73-year-old diabetic male presenting with obstructive jaundice, gallstones noted on ultrasound of gallbladder and choledocholithiasis on MRCP without evidence of acute cholecystitis.
Labs pending
AFVSS
--GI following with us with plan for ERCP today
--Recommend lap juan this admission, will tentatively plan for OR today after ERCP if able to arrange timing with OR vs Sunday
--NPO for procedure
--Continue empiric abx
Subjective Data
-
Date of Service: August 06, 2023
Patient seen and examined at bedside with Dr. Crawley. Denies n/v. Denies pain but was tender on exam to the RUQ.
Objective Data
-
Intake and Output
08/05/23 08/06/23 08/07/23
06:59 06:59 06:59
Intake Total 2120 / 2120 1400 / 1400 1300 / 1300
Balance 2120 / 2120 1400 / 1400 1300 / 1300
Intake:
Oral fluids 480 / 480 420 / 420
IV fluids (Total) 1440 / 1440 880 / 880 1200 / 1200
IV piggybacks 200 / 200 100 / 100 100 / 100
Other:
Number of approximated MODERATE 4 1
amounts of urine
Vital Signs
Temp Pulse Resp BP Pulse Ox
98.1 F 57 18 129/69 95
08/05/23 23:36 08/05/23 23:36 08/05/23 23:36 08/05/23 23:36 08/05/23 23:36
Calcium 8.9 mg/dl (8.4-10.2) 08/05/23 07:00
Magnesium 2.2 mg/dl (1.6-2.3) 08/04/23 07:41
Total Bilirubin 5.9 mg/dl (0.2-1.3) H D 08/05/23 07:00
Direct Bilirubin 1.7 mg/dl (0.0-0.4) H 08/04/23 07:41
AST 103 U/L (17-59) H 08/05/23 07:00
ALT 168 U/L (0-50) H 08/05/23 07:00
Alkaline Phosphatase 252 U/L (38-126) H 08/05/23 07:00
Total Protein 6.7 g/dl (6.3-8.2) 08/05/23 07:00
Albumin 3.8 g/dl (3.5-5.0) 08/05/23 07:00
Physical Exam
-
NAD
ABD soft/mildly tender to RUQ/nd
Jaundiced
[2023-08-06 09:12] LABS: ALT (SGPT) 163 U/L (0-50); AST (SGOT) 100 U/L (17-59); Albumin 3.7 g/dl (3.5-5.0); Alkaline Phosphatase 249 U/L (38-126); Blood Urea Nitrogen 9 mg/dl (9-20); Calcium 8.9 mg/dl (8.4-10.2); Carbon Dioxide 23 mmol/L (22-30); Chloride 108 mmol/L (98-107); Estimated Creatinine Clearance 72 ml/min; Glucose 129 mg/dl (70-99); Sodium 136 mmol/L (135-145); Total Bilirubin 5.7 mg/dl (0.2-1.3); Total Protein 6.7 g/dl (6.3-8.2); eGFR > 60.00
[2023-08-06 11:31] LABS: Glucose - Point of Care 125 mg/dl (70-99)
--- NOTE | 2023-08-06 12:12 | CM ---
CM reviewed chart, per updated notes, plan for cholecystectomy either today or tomorrow. Patient seen bedside, reports no new concerns. CM will continue to follow for discharge planning needs.
Plan; home vs watch for VN needs.
[2023-08-06 15:19] LABS: Glucose - Point of Care 96 mg/dl (70-99)
--- NOTE | 2023-08-06 16:46 | PTCARENOTE ---
received from PACU. post ERCP- assisted to bed, slight drowsiness noted.instructed to call for assitance if needing to get out of bed. call marinelli in reach. voiced understanding. vitals noted, no complaints. at bedside. noticed small abrasion
on cheek adjacent to left eye. plan of care on going.
[2023-08-06 17:07] LABS: Glucose - Point of Care 128 mg/dl (70-99)
[2023-08-06] MEDS: LOVENOX 40 MG SC (18:34)
[2023-08-06 23:56] LABS: Glucose - Point of Care 183 mg/dl (70-99)
[2023-08-07] VITALS (11 sets, daily range): BP systolic 124–166; BP diastolic 56–78; BMI 29.7
[2023-08-07] MEDS: NOVOLOG FLEXPEN-LOW RESISTANCE 1 UNITS SC ×2 (00:21→17:51)
[2023-08-07] MEDS: ZOSYN 50 IV ×4 (03:50→22:06)
[2023-08-07 06:14] LABS: Glucose - Point of Care 143 mg/dl (70-99)
[2023-08-07] MEDS: NOVOLOG FLEXPEN-LOW RESISTANCE SC ×2 (06:14→11:37)
[2023-08-07 07:42] LABS: ALT (SGPT) 212 U/L (0-50); AST (SGOT) 155 U/L (17-59); Albumin 3.7 g/dl (3.5-5.0); Alkaline Phosphatase 249 U/L (38-126); Blood Urea Nitrogen 12 mg/dl (9-20); Calcium 9.3 mg/dl (8.4-10.2); Carbon Dioxide 25 mmol/L (22-30); Chloride 103 mmol/L (98-107); Estimated Creatinine Clearance 65 ml/min; Glucose 134 mg/dl (70-99); Potassium 3.9 mmol/L (3.5-5.1); Sodium 137 mmol/L (135-145); Total Bilirubin 6.6 mg/dl (0.2-1.3); Total Protein 6.7 g/dl (6.3-8.2); eGFR > 60.00
--- NOTE | 2023-08-07 08:06 | W.PN.GS2 ---
Today's Communication / Plan
-
-- Lap juan
Assessment / Plan
-
Assessment/plan: 73-year-old diabetic male presenting with obstructive jaundice, gallstones noted on ultrasound of gallbladder and choledocholithiasis on MRCP without evidence of acute cholecystitis.
ERCP (08/05): stone removal
AVSS
Labs reviewed - mild leukopenia (post-procedure reaction, maybe abx), LFTs and ALP remain elevated, bili normal
The natural history and pathophysiology of biliary and stone disease was discussed. Role of cholecystectomy in preventing future episodes of cholecystitis or repeat choledocholithiasis was discussed. Recommend and plan for laparoscopic
cholecystectomy. The procedure itself, as well as the risks, benefits, and alternatives was discussed. Typical postprocedural recovery was discussed. All questions answered. Consent signed.
-- Laparoscopic cholecystectomy
-- NPO, IVF
-- Abx: Zosyn
Subjective Data
-
Date of Service: August 07, 2023
Feels well, denies worsening abdominal pain. No fevers or chills. No nausea or vomiting. Reports history of 2 episodes of chills with most recent resulting in pruritus prompting presentation to the ED. He denies any prior episodes of nagging
abdominal pain or discomfort. He is known about his gallstones for 4 years now.
Objective Data
-
Intake and Output
08/06/23 08/07/23 08/08/23
06:59 06:59 06:59
Intake Total 1400 / 1400 2440 / 2440
Balance 1400 / 1400 2440 / 2440
Intake:
Oral fluids 420 / 420 540 / 540
IV fluids (Total) 880 / 880 1750 / 1750
nss 100 / 100
zosyn 50 / 50
IV piggybacks 100 / 100 150 / 150
Other:
Number of approximated MODERATE 1 2
amounts of urine
Vital Signs
Temp Pulse Resp BP Pulse Ox
98.1 F 55 18 134/65 97
08/06/23 23:38 08/06/23 23:38 08/06/23 23:38 08/06/23 23:38 08/06/23 23:38
Lab Results
08/06/23 08:12
08/07/23 06:49
Calcium 9.3 mg/dl (8.4-10.2) 08/07/23 06:49
Magnesium 2.2 mg/dl (1.6-2.3) 08/04/23 07:41
Total Bilirubin 6.6 mg/dl (0.2-1.3) H 08/07/23 06:49
Direct Bilirubin 1.7 mg/dl (0.0-0.4) H 08/04/23 07:41
AST 155 U/L (17-59) H 08/07/23 06:49
ALT 212 U/L (0-50) H 08/07/23 06:49
Alkaline Phosphatase 249 U/L (38-126) H 08/07/23 06:49
Total Protein 6.7 g/dl (6.3-8.2) 08/07/23 06:49
Albumin 3.7 g/dl (3.5-5.0) 08/07/23 06:49
Physical Exam
-
Gen: NAD
Abd: obese, soft, NT/ND, negative Allen's sign, non-peritoneal
[2023-08-07] MEDS: NSS IV (08:07)
[2023-08-07] MEDS: PROTONIX IV 40 MG IV (08:08)
[2023-08-07] MEDS: NSS (PRESERVATIVE FREE) 10 ML IV (08:08)
--- NOTE | 2023-08-07 08:10 | W.SUR.PREOP ---
Pre-Operative Surgical Note
-
I have examined this patient prior to the performance of the scheduled procedure.
The patient's condition is unchanged from the time of the current History and
Physical and the patient is able to undergo the scheduled procedure.
--- NOTE | 2023-08-07 09:16 | W.PN.HOSP.TC ---
Addendum entered and electronically signed by Dani Brokoe MD 08/08/23 15:07:
Choledocholithiasis with obstruction
Original Note:
Today's Communication/Plan
-
For lap cholecystectomy today
Possible discharge later if tolerates orals
Assessment / Plan
Assessment / Plan
Physical exam:
General: Acutely ill.� Nontoxic
HEENT: Icterus present. Normocephalic, Atraumatic and Dry Mucous Membranes
Respiratory: Clear to Auscultation; Negative Wheezes, Rales or Rhonchi
Cardiac: Regular Rhythm and S1/S2
GI: Soft, Nontender and Nondistended
Musculoskeletal: No Clubbing, No Cyanosis and No Edema
Neuro: Awake, Alert and Oriented
Psych: Calm
A/P:
Choledocholithiasis and cholelithiasis:
-MRCP showed 7 mm distal common bile stone
-Continue to trend LFTs (trending up currently)
-Continue IV antibiotics, Zosyn
-Continue IV fluids
-Appreciate GI consult/for ERCP :� � � - A filling defect consistent with a stone was seen on
�� � � � � � � � � � � the cholangiogram.
�� � � � � � � � � � � - Choledocholithiasis was found. Complete removal was
�� � � � � � � � � � � accomplished by biliary sphincterotomy and balloon
�� � � � � � � � � � � extraction.
�� � � � � � � � � � � - A biliary sphincterotomy was performed.
�� � � � � � � � � � � - The biliary tree was swept
-Appreciate surgery consult/for lap cholecystectomy today
-Continue pain control
-n.p.o. after midnight
Hyponatremia:
-cont to monitor
-Repeat pending trending up
Diabetes Mellitus, Type II
-Cont to hold metformin
-Monitor sugars and continue coverage insulin
-Hemoglobin A1c 6.5
DVT proph: Lovenox
Code Status: Full Code
Anticipated Discharge: Within 24 hours
Subjective/Interval History
-
Date of Service: August 07, 2023
Doing well post total retrieval via ERCP has been n.p.o.
Objective Data
-
Labs:
Laboratory Results
08/07/23
06:49
Sodium 137
Potassium 3.9
Chloride 103
Carbon Dioxide 25
BUN 12
Creatinine 1.0
Glucose 134 H
Calcium 9.3
Total Bilirubin 6.6 H
AST 155 H
ALT 212 H
Alkaline Phosphatase 249 H
Vital Signs:
Vital Signs
Temp Pulse Resp BP Pulse Ox
97.6 F 52 16 148/78 97
08/07/23 07:50 08/07/23 07:50 08/07/23 07:50 08/07/23 07:50 08/07/23 07:50
I&O
08/06/23 08/07/23 08/08/23
06:59 06:59 06:59
Intake Total 1400 / 1400 2440 / 2440
Balance 1400 / 1400 2440 / 2440
Review of Systems
-
All other systems: Not reviewed unless documented
Physical Exam
-
General: Well Developed
HEENT: Normocephalic
Respiratory: Clear to Auscultation
Cardiac: Regular Rhythm
GI: Soft and Nontender
Musculoskeletal: No Clubbing
Skin: Warm
Neuro: Awake
Data Reviewed
-
Total Time Spent with Patient (in minutes): 56
Labs: Labs Reviewed by me (Some slight trend up in LFTs/bilirubin 6.6)
[2023-08-07] MEDS: NSS 1000 IV (10:15)
--- NOTE | 2023-08-07 11:16 | W.PN.GI.CBS2 ---
Addendum entered and electronically signed by Etienne Diallo MD 08/07/23 16:25:
I saw and examined the patient.
The QUALITY CONTROL REPRESENTATIVE or PA's note was reviewed and I agree with the note.
Comment: 73 yo M here with gallstones and CBD stone s/p ERCP and CCY.
Bili up today
Will repeat tomorrow - if trending down ok d/c GI POV with repeat LFTs 1 week
US and OR report with fatty liver - d/w at bedside patient sees GI at [place] can follow up with them outpatient she will call our office with name and we can send records
Original Note:
Today's Communication / Plan
-
for CCY
Assessment / Plan
-
73-year-old male with history of melanoma, BPH, diabetes vertigo and colon polyps presents to the emergency room with elevated LFTs. New onset jaundice with recent episodes of rigors. Gallbladder with cholelithiasis. WBC 4.8, hemoglobin 13.5,
hematocrit 39.7, platelets 154, PT 12.6, INR 0.96, sodium 135, potassium 3.9, BUN 16, creatinine 0.8, glucose 207, total bilirubin 3.6, AST 61, ALT 175, alk phos 193, amylase 56, lipase 87.
MRI- 7mm distal CBD stone. Cholelithiasis without evidence for acute cholecystitis
ERCP 08/06/23 (Jake) �- A filling defect consistent with a stone was seen on
�� � � � � � � � � � � the cholangiogram.
�� � � � � � � � � � � - Choledocholithiasis was found. Complete removal was
�� � � � � � � � � � � accomplished by biliary sphincterotomy and balloon
�� � � � � � � � � � � extraction.
�� � � � � � � � � � � - A biliary sphincterotomy was performed.
�� � � � � � � � � � � - The biliary tree was swept
Impression:
CBD stone
Recent rigors
Plan:
-For Cholecystectomy today
-Recommend follow up LFTs in 1 week to ensure trending down. Would have patient follow up with PCP. If still elevated can follow up in the office.
Subjective
Subjective
Date of Service: August 07, 2023
Patient is feeling good. Denies any abdominal pain. Patient is status post ERCP yesterday with sphincterotomy and balloon extraction of CBD stone. Patient has cholecystectomy planned for today.
Objective
Data Reviewed
Laboratory Data:
Laboratory Results
08/06/23 08:12
08/07/23 06:49
Laboratory Results
PT 12.6 Sec (11.4-14.6) 08/03/23 11:46
INR 0.96 08/03/23 11:46
APTT 31.4 Sec (23.4-35.0) 08/03/23 11:46
Magnesium 2.2 mg/dl (1.6-2.3) 08/04/23 07:41
Total Bilirubin 6.6 mg/dl (0.2-1.3) H 08/07/23 06:49
AST 155 U/L (17-59) H 08/07/23 06:49
ALT 212 U/L (0-50) H 08/07/23 06:49
Alkaline Phosphatase 249 U/L (38-126) H 08/07/23 06:49
Amylase 56 U/L (30-110) 08/03/23 11:46
Lipase 87 U/L (23-300) 08/03/23 11:46
Vital Signs and I&O:
Vital Signs
Temp Pulse Resp BP Pulse Ox
97.6 F 52 16 148/78 97
08/07/23 07:50 08/07/23 07:50 08/07/23 07:50 08/07/23 07:50 08/07/23 07:50
I&O
08/06/23 08/07/23 08/08/23
06:59 06:59 06:59
Intake Total 1400 / 1400 2440 / 2440
Balance 1400 / 1400 2440 / 2440
Physical Exam
Physical Exam
HEENT: Other (Mildly icteric sclera)
Cardiology: Normal Sinus Rhythm
Pulmonary: Clear
GI: Soft, Non Distended, Non Tender and Normal Bowel Sounds
Neuro: Non Focal
[2023-08-07 12:28] LABS: Glucose - Point of Care 111 mg/dl (70-99)
--- NOTE | 2023-08-07 14:05 | W.IMMPOSTOP ---
Addendum entered and electronically signed by Chilo Dugan MD 08/07/23 17:22:
[facility]#[id number]
Original Note:
Surgical Immed Post Op Note
-
Primary Surgeon: Kailee
Assisting Surgeon: None
Pre-op Diagnosis: Choledocholithiasis
Post-op Diagnosis: Choledocholithiasis and chronic cholecystitis
Procedure Performed: Laparoscopic cholecystectomy
Anesthesia Type: General
Specimen / Cultures:
1. Gallbladder
Estimated Blood Loss: 23 cc
Complications: None
Operative Findings:
1. Fatty liver disease, distended GB with chronic wall thickening, intra-hepatic
2. Critical view of safety, no IOC as ERCP yesterday
3. Duct take with sarabia load stapler, artery with clips
[2023-08-07 14:23] LABS: Glucose - Point of Care 148 mg/dl (70-99)
[2023-08-07] MEDS: ZOFRAN 4 MG IV (15:33)
--- NOTE | 2023-08-07 15:37 | PTCARENOTE ---
1520 Addendum note..During transfer patient became nauseous, transport stopped and return to PACU. Patient vomitted aprox 200 ML bilious content, placed back on monitor, BP 162/66 HR SB /NSR 58-62, RR 16, 96% on 2L N/C and medicated with zofran as
ordered and given additional IVF.
--- NOTE | 2023-08-07 15:40 | PTCARENOTE ---
Patient reports improvement, nausea resolved VSS. Will transfer back to floor.
--- NOTE | 2023-08-07 16:00 | PTCARENOTE ---
Pt returned from PACU, vomited prior to leaving PACU, was given zofran. Pt drowsy but easily arousable, oriented x3. VSS 96% on 2L. 5 Lap sites with surgi glue TOMEKA. Pt has no c/o pain at this time, at bedside. HOB elevated, call marinelli within
reach, plan of care ongoing.
[2023-08-07 17:06] LABS: Glucose - Point of Care 154 mg/dl (70-99)
[2023-08-07] MEDS: LOVENOX 40 MG SC (17:51)
[2023-08-07 21:25] LABS: Glucose - Point of Care 235 mg/dl (70-99)
[2023-08-08 03:00] VITALS: BP 129/58
[2023-08-08] MEDS: ZOSYN 50 IV ×2 (04:04→10:00)
[2023-08-08 05:08] VITALS: BMI 30.2
[2023-08-08] MEDS: TYLENOL 650 MG PO (07:31)
[2023-08-08] MEDS: NSS (PRESERVATIVE FREE) 10 ML IV (07:32)
[2023-08-08] MEDS: PROTONIX IV 40 MG IV (07:32)
[2023-08-08 07:37] LABS: Glucose - Point of Care 99 mg/dl (70-99)
[2023-08-08 07:55] VITALS: BP 135/59
[2023-08-08 08:03] LABS: ALT (SGPT) 307 U/L (0-50); AST (SGOT) 264 U/L (17-59); Albumin 3.8 g/dl (3.5-5.0); Alkaline Phosphatase 211 U/L (38-126); Direct Bilirubin 2.8 mg/dl (0.0-0.4); Total Bilirubin 4.2 mg/dl (0.2-1.3); Total Protein 6.7 g/dl (6.3-8.2)
--- NOTE | 2023-08-08 10:06 | W.DS.TRANS ---
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
-
Discharge Instructions:
Discharge Diagnosis/Procedures Choledocholithiasis s/p ERCP and s/p
laparoscopic cholecystectomy
Diet Regular
Additional Diets If you have loose stools after surgery, switch
to a low fat diet
Activity No strenuous activity
Additional Activity Do not lift more than 15 pounds for the next 2-[address] once comfortable twisting/off narcotics
Bathing Restrictions OK to Shower
Wound Care Allow skin glue to flake off on its own.
Stitches will dissolve. Keep incisions clean
and dry.
Instructions:
Stand-Alone Forms:
Changes to Home Medications: Yes
Discharge Medications:
DC Medications w/original date entered in [facility]
meclizine 12.5 mg tablet 12.5 mg PO TIDPRN PRN vertigo 08/03/23
metformin 500 mg tablet,extended release 24 hr 500 mg PO DAILY Diabetes 08/03/23
multivit,calcium,min-folic acid 240 mcg-D3 25 mcg-lycop 300 mcg tablet (One A Day Men Complete) 1 tab PO DAILY Supplement 08/03/23
naproxen sodium 220 mg tablet (Aleve) 440 mg PO DAILYPRN PRN mild pain 08/03/23
polyethylene glycol 3350 17 gram oral powder packet (Miralax) 17 g PO DAILY PRN constipation 08/03/23
acetaminophen 325 mg tablet 650 mg PO Q4HPRN PRN mild pain #1 tab 08/07/23
oxycodone 5 mg tablet 5 mg PO Q4HPRN PRN breakthrough/severe pain #10 tabs 08/07/23
Home Medication Changes
oxycodone 5 mg tablet 5 mg PO Q4HPRN PRN breakthrough/severe pain #10 tabs 08/07/23
Pending Results: No
Total time spent discharging patient (in min): 45
--- NOTE | 2023-08-08 10:43 | W.PN.GI.CBS2 ---
Addendum entered and electronically signed by Etienne Diallo MD 08/08/23 12:25:
I saw and examined the patient.
The DRILLER'S OFFSIDER or PA's note was reviewed and I agree with the note.
Comment: 73 yo M here with gallstones and CBD stone s/p ERCP and CCY.
LFTs trending down today - recommend outpatient LFTs one week.
US and OR report with fatty liver - recommend outpatient GI follow up discussed weight loss/avoid ETOH.
Patient being discharged today.
Original Note:
Today's Communication / Plan
-
As per plan
Assessment / Plan
-
73-year-old male with history of melanoma, BPH, diabetes vertigo and colon polyps presents to the emergency room with elevated LFTs. New onset jaundice with recent episodes of rigors. Gallbladder with cholelithiasis. WBC 4.8, hemoglobin 13.5,
hematocrit 39.7, platelets 154, PT 12.6, INR 0.96, sodium 135, potassium 3.9, BUN 16, creatinine 0.8, glucose 207, total bilirubin 3.6, AST 61, ALT 175, alk phos 193, amylase 56, lipase 87.
MRI- 7mm distal CBD stone. Cholelithiasis without evidence for acute cholecystitis
ERCP 08/06/23 ([facility]) �- A filling defect consistent with a stone was seen on
�� � � � � � � � � � � the cholangiogram.
�� � � � � � � � � � � - Choledocholithiasis was found. Complete removal was
�� � � � � � � � � � � accomplished by biliary sphincterotomy and balloon
�� � � � � � � � � � � extraction.
�� � � � � � � � � � � - A biliary sphincterotomy was performed.
�� � � � � � � � � � � - The biliary tree was swept
Impression:
CBD stone status post ERCP with sphincterotomy and balloon stone extraction
Recent rigors
Plan:
-Recommend follow-up with PCP for repeat LFTs in 1 week.
-Follow-up with patient's primary GI at [facility] for follow-up on fatty liver.
-Nothing further to have. Will be available as nearby request.
Subjective
Subjective
Date of Service: August 08, 2023
Patient states he feels 'exceptionally well'. Mild incisional tenderness. He states this is relieved with Tylenol. Tolerating a low-fat diet without any difficulty. Patient bilirubin trending down. Transaminases still elevated. Discussed with
patient to follow-up with PCP for repeat labs in approximately 1 week.
Objective
Data Reviewed
Laboratory Data:
Laboratory Results
08/06/23 08:12
08/07/23 06:49
Laboratory Results
PT 12.6 Sec (11.4-14.6) 08/03/23 11:46
INR 0.96 08/03/23 11:46
APTT 31.4 Sec (23.4-35.0) 08/03/23 11:46
Magnesium 2.2 mg/dl (1.6-2.3) 08/04/23 07:41
Total Bilirubin 4.2 mg/dl (0.2-1.3) H 08/08/23 07:12
AST 264 U/L (17-59) H 08/08/23 07:12
ALT 307 U/L (0-50) H 08/08/23 07:12
Alkaline Phosphatase 211 U/L (38-126) H 08/08/23 07:12
Amylase 56 U/L (30-110) 08/03/23 11:46
Lipase 87 U/L (23-300) 08/03/23 11:46
Vital Signs and I&O:
Vital Signs
Temp Pulse Resp BP Pulse Ox
98.4 F 53 16 135/59 96
08/08/23 07:55 08/08/23 07:55 08/08/23 07:55 08/08/23 07:55 08/08/23 08:00
I&O
08/07/23 08/08/23 08/09/23
06:59 06:59 06:59
Intake Total 2440 / 2440 560 / 560
Balance 2440 / 2440 560 / 560
Physical Exam
Physical Exam
HEENT: Moist mucous membranes
Cardiology: Normal Sinus Rhythm
Pulmonary: Clear
GI: Soft, Non Distended, Non Tender, Normal Bowel Sounds and Other (Clean incisions)
Extremities: No Edema
Neuro: Non Focal
--- NOTE | 2023-08-08 11:20 | CM ---
Patient seen bedside, IMM reviewed, signed, placed in chart. Patient reports his will be here between 11:30-12:00 p.m. to provide transportation home. CM will continue to follow for discharge planning needs.
Plan; home no needs.
--- NOTE | 2023-08-08 11:28 | W.DCSUMMARY ---
Discharge Summary
Discharge Data
Date of Admission: 08/03/23
Date of Discharge: 08/08/23
-
Pending Results: No
Hospital Course
73-year-old male with a history of melanoma BPH diabetes and colonic polyposis presented to the emergency room date of admission with elevated liver transaminases and new onset jaundice with periods of rigors. He was found to have cholelithiasis on
imaging with a presentation AST of 61 and bilirubin of 33.6 and ALT of 175 and alk phos of 193 further imaging with an MRI showed a 7 mm distal common bile duct stone with underlying cholelithiasis without evidence of acute cholecystitis however.
Consultations were placed with the GI service and the gastroenterology service.
Patient underwent an ERCP on 05 August noting a filling defect consistent with stone seen on cholangiography. Choledocho cholelithiasis was found with complete removal with biliary sphincterotomy and balloon extraction of stone. Recommendation was
for lap cholecystectomy which was undertaken on 06 August without event and he has since tolerated a regular diet without issue. At this point he will probably need some further follow-up in relation to his transaminitis and his hepatic status
ptosis that was noted. He was instructed to follow-up with his primary legal director at [facility] for follow-up on his fatty liver with possibly obtaining repeat liver transaminases in 2 weeks time at his PCPs office.
Discharge Plan
-
Patient Disposition: Home (Routine Discharge)
Discharge Diagnosis/Procedures: Choledocholithiasis s/p ERCP and s/p laparoscopic cholecystectomy
Condition: Good
Diet: Regular
Additional Diets: If you have loose stools after surgery, switch to a low fat diet
Activity: No strenuous activity
Additional Activity: Do not lift more than 15 pounds for the next 2-3 weeks
Driving Restrictions: Drive once comfortable twisting/off narcotics
Bathing Restrictions: OK to Shower
Wound Care: Allow skin glue to flake off on its own. Stitches will dissolve. Keep incisions clean and dry.
Activity Restrictions/Additional Instructions:
Call your surgeon if you have fevers >100.5, worsening abdominal pain or nausea with vomiting
Referrals:
Dante Villalobos MD [Family Provider] - (Repeat liver transaminases in 2 to 3-week)
Chilo Dugan MD [Active] - in two to four weeks
Prescriptions:
New
acetaminophen [acetaminophen] 325 mg tablet
650 mg PO Q4HPRN PRN (Reason: mild pain) Qty: 1 0RF
oxycodone 5 mg tablet
5 mg PO Q4HPRN PRN (Reason: breakthrough/severe pain) Qty: 10 0RF
Continued
polyethylene glycol 3350 [Miralax] 17 gram Powder In Packet
17 g PO DAILY PRN (Reason: constipation)
meclizine 12.5 mg tablet
12.5 mg PO TIDPRN PRN (Reason: vertigo)
naproxen sodium [Aleve] 220 mg Tablet
440 mg PO DAILYPRN PRN (Reason: mild pain)
metformin 500 mg tablet extended release 24 hr
500 mg PO DAILY
One A Day Men Complete 240-25-300 mcg Tablet
1 tab PO DAILY
Discharge Orders:
Discharge Patient (As Directed); Ordered 08/08/23
Ordered By: Dani Brooke
--- NOTE | 2023-08-08 11:50 | PN.CDI ---
CDI
- -
CDI:
Physician Documentation Request
Admit Date: 08/03/23 13:22
Dear Doctor Mendy,
Patient admitted with choledocholithiasis s/p ERCP and Laparoscopic cholecystectomy. ERCP with biliary sphincterotomy and balloon extraction of stone.
Please further clarify:
Choledocholithiasis with obstruction
Choledocholithiasis without obstruction
Other
Use of terms such as suspected, likely, concern for, or probable (associated with a specific diagnosis that is being evaluated, monitored, or treated as if it exists) are acceptable and can be coded in the inpatient setting, when documented at the
time of discharge.
Thank you,
Estelle Tijerina RN, BSN
CDI Specialist
tiger text
Please use your independent medical judgment in providing your response.
== END 2023-08-08 11:36 | disposition home or self-care (01) | DRG 418 ==
LOC: 4 EAST ACU 13:22
PROVIDERS: Internal Medicine Gastroenterology; Nurse Practitioner; Physician Assistant Medical; Surgery; ADMITTING PHYSICIAN Hospitalist; ATTENDING PHYSICIAN Internal Medicine; CONSULT PHYSICIAN Specialist; CONSULT PHYSICIAN Surgery; EMERGENCY PHYSICIAN Emergency Medicine; FAMILY PHYSICIAN Family Medicine
PROC: 0FT44ZZ Resection of Gallbladder, Percutaneous Endoscopic Approach (ICD-10-PCS; 2023-08-03)
PROC: 0FC98ZZ Extirpation of Matter from Common Bile Duct, Via Natural or Artificial Opening Endoscopic (ICD-10-PCS; 2023-08-06)
DX: K80.65 Calculus of gallbladder and bile duct with chronic cholecystitis with obstruction (principal); E87.1 Hypo-osmolality and hyponatremia; K76.0 Fatty (change of) liver, not elsewhere classified; E11.9 Type 2 diabetes mellitus without complications; K82.8 Other specified diseases of gallbladder; K80.70 Calculus of gallbladder and bile duct without cholecystitis without obstruction; K80.51 Calculus of bile duct without cholangitis or cholecystitis with obstruction
CPT/HCPCS: 88304; 74183; 74330; 76000; 76700; 80053; 80076; 82150; 82248; 82962; 83036; 83690; 83735; 85025; 85027; 85610; 85730; 86705; 86706; 86709; 86803; 87040; 87340; 99284; A9575